=== PATIENT | male | born 1930 | race Caucasian/White ===

== ENCOUNTER 2018-03-15 12:40 | Inpatient (IN) | payer MEDICARE, BC ==
[2018-03-15 13:59] LABS: #Eosinphils 0.2 thou/uL (0.0-0.7); #Lymphocytes 0.6 thou/uL (1.20-3.40); #Monocytes 0.4 thou/uL (0.11-0.59); #Neutrophils 5.1 thou/uL (1.40-6.50); %Basophils 0.4 % (0.0-1.0); %Eosinophils 3.2 % (0.0-10.0); %Lymphocytes 9.2 % (21.0-51.0); %Neutrophils 81.2 % (42.0-75.0); Hemoglobin 13.2 g/dL (14.0-18.0); Mean Corpuscular HGB CONC 33.6 g/dL (32.0-36.0); Mean Corpuscular Hemoglobin 30.7 pg (27.0-31.0); Mean Corpuscular Volume 91.1 fl (80.0-94.0); Mean Platelet Volume 6.5 fL (7.4-10.4); Platelet Count 277 thou/uL (130-400); RBC Distribution Width 11.9 % (11.5-14.5); Red Blood Cell (RBC) Count 4.31 mill/uL (4.70-6.10); White Blood Cell (WBC) Count 6.2 thou/uL (4.8-10.8)
[2018-03-15 14:15] LABS: Bilirubin Negative (Negative); Blood, Urine Negative (Negative); Clarity CLEAR (Clear); Glucose, Urine (Dipstick) 100 mg/dL (Negative); Leukocyte Moderate (Negative); Nitrite Negative (Negative); Protein, Urine (Dipstick) 30 mg/dL (Neg-Trace); Specific Gravity, Urine 1.015 (1.002-1.036); pH, Urine 6.5 (5.0-9.0)
[2018-03-15 14:19] LABS: Bacteria/HPF None Seen HPF (None Seen); Hyaline Casts/LPF 0-3 HYALINE CAST LPF (0-3 Hyaline); RBC/HPF 0-3 HPF (0-3); Squamous Epithelial 0-3 HPF (0-3)
[2018-03-15 14:20] LABS: ALT (SGPT) 9 U/L (8-55); AST (SGOT) 11 U/L (5-34); Albumin 3.9 g/dL (3.4-4.8); Alkaline Phosphatase 134 U/L (40-150); Anion Gap 14 mmol/L (10-20); BUN (Urea Nitrogen) 16 mg/dL (8.4-25.7); Bilirubin, Total 0.6 mg/dL (0.2-1.2); Calc. Creatinine Clearance 0 mL/min (70-130); Calcium 9.7 mg/dL (7.8-10.44); Carbon Dioxide 25 mmol/L (23-31); Chloride 97 mmol/L (98-107); Estimated GFR-MDRD 90; Globulin 2.9 g/dL (2.4-3.5); Glucose 201 mg/dL (83-110); Potassium 4.1 mmol/L (3.5-5.1); Protein, Total 6.8 g/dL (5.8-8.1); Sodium 132 mmol/L (136-145)
--- NOTE | 2018-03-15 17:13 | ULT ---
BILATERAL LOWER EXTREMITY VENOUS DOPPLER 03/15/18 PROVIDED CLINICAL HISTORY: Bilateral lower extremity pain and edema. FINDINGS: Qureshi scale and color doppler sonography with spectral analysis is performed of bilateral common femor al, femoral, popliteal, posterior tibial, greater saphenous, and profunda femoral veins demonstrating a normal sonographic appearance to each. IMPRESSION: No sonographic evidence for lower extremity deep venous thrombosis. POS: ALICIA
[2018-03-15 18:30] LABS: Lactic Acid 1.1 mmol/L (0.5-2.2)
[2018-03-15] MEDS ORDERED: HYDROcodone/Acetaminophen 5/325 mg Tablet PO PRN (19:47)
[2018-03-15] MEDS ORDERED: Acetaminophen 325 MG TAB PO PRN (19:47)
[2018-03-15] MEDS ORDERED: Ondansetron PF 4 MG/2 ML Vial IVP PRN (19:47)
[2018-03-15] MEDS ORDERED: cefTRIAXone\\ROCEPHIN 500 MG in Sodium Chloride 0.9% 0 ML IVPB SCH (20:00)
[2018-03-15] MEDS ORDERED: Vancomycin HCl 1.25 GM in Sodium Chloride 0.9% 250 ML 250 ML IVPB SCH (21:00)
--- NOTE | 2018-03-15 21:15 | HP ---
PRIMARY CARE PHYSICIAN: Dr. Gutierrez. CHIEF COMPLAINT: Bilateral lower extremity swelling. HISTORY OF PRESENT ILLNESS: This is an 87-year-old male with a known history of diabetes, peripheral vascular disease, hard of hearing, who presented with a progressive 1-2 weeks lower extremity swelli ng with erythema. He states that it started at the bottoms of his feet which are currently very tend er and had some petechiae upon them. He states that it has gotten progressively painful. Denies any shortness of breath, fevers or chills. Denies any prior similar episodes. REVIEW OF SYSTEMS: As per above. General: No significant weight changes, no fevers, no chills as d escribed above. HEENT: No any headache, no vision changes, no lightheadedness or dizziness. Cardio vascular: Denies any chest pain, chest pressure, left side arm numbness or tingling. Respiratory: Denies any overt shortness of breath, recent upper respiratory infections. No new cough, no new issu es with congestion. Gastrointestinal: Denies any nausea, vomiting, abdominal pain, diarrhea or cons tipation. Reports that his appetite has remained stable. Genitourinary: Denies any dysuria, change in his urinary frequency quality or quantity or odor. Musculoskeletal: Denies any myalgias or arth ralgias. Skin: No other rashes, lumps or bumps that the patient has noticed. Remainder of review o f systems is otherwise negative. PAST MEDICAL HISTORY: As per above includes, 1. Type 2 diabetes. 2. Hyperlipidemia. 3. Hypertension. 4. Parkinson's. 5. Status post tonsillectomy. ALLERGIES: No known drug allergies. HOME MEDICATIONS: The patient states that his facility would have a list, but he does not recall off the top of his head, so therefore do not have a list yet. FAMILY HISTORY: The patient denies any family history of frequent infections. Denies any known fami ly history of heart failure or lower extremity swelling. SOCIAL HISTORY: The patient currently resides in a assisted. Denies any alcohol use, tobacco us e or illicit drug use. Patient currently endorses that he wishes to be FULL CODE. The patient does not have any pets with him, although he states that there is a dog that resides next door to him, but he does not go into contact with the dog. PHYSICAL EXAMINATION: GENERAL: The patient is awake, alert, and appropriate, in no acute distress, seated in the hospital bed. HEENT: Normocephalic, atraumatic, slightly dry mucous membranes, equal ocular motions are intact. CARDIOVASCULAR: S1, S2. Pulses 2+ bilateral upper extremities, 2+ to 3+ bilateral pitting pedal darrick ma. RESPIRATORY: Reasonable air movement and no conversational dyspnea. No wheezes, rales or rhonchi. LUNGS: Clear to auscultation bilaterally. ABDOMEN: Positive bowel sounds, soft, nontender to palpation. MUSCULOSKELETAL: Moving all 4 extremities independently, bilateral lower extremities. SKIN: Significant amount of erythema involving the bottoms of his feet and stretching alf up thr ough his roman. No other areas of erythema on his torso head, neck, back, legs, arms. Some areas of petechiae and ecchymoses on the bottoms of his bilateral feet extending from his heel anteriorly abou t 3/4 of his foot. LABORATORY AND IMAGING DATA: WBC 6.2, hemoglobin 13.2, hematocrit 39.3, platelets 277. Sodium 132, potassium 4.1, chloride 97, bicarbonate 25, BUN 16, creatinine 0.81, glucose 201. Lactic acid 2.3, c alcium 9.7, total bilirubin 0.6, AST 11, ALT 9, alkaline phosphatase 134. BNP 222.1, total protein 6 .8, albumin 3.9. UA significant for 30 of protein, 100 of glucose, moderate leukoesterase and 11-12 wbc's On 03/15/2018, bilateral lower extremity Dopplers, impression, "no sonographic evidence for lower ext remity deep venous thrombosis." ASSESSMENT AND PLAN: An 87-year-old male who is presenting with bilateral lower extremity swelling. 1. The patient has a degree of a slight asymmetry to his bilateral lower extremity swelling particul missy the erythematous pattern concerned for the possibility of an infectious etiology. We will start the patient on vancomycin and ceftriaxone. 2. DVT has been ruled out on bilateral lower extremity Dopplers. Could consider some diuresis as we ll to help with the bilateral lower extremity swelling. The patient does not overtly carry a diagnos is of heart failure at this point in time. 3. Type 2 diabetes. Given the patient's type 2 diabetes, he is at theoretical increased risk for ps eudomonal agents; however, he does not have the historical exposure. I will continue to monitor his cellulitis closely. I outlined the area of erythema. 4. Hypertension, stable. 5. Parkinson's, stable. 6. Diet: Diabetic. 7. Activity: As tolerated. 8. DVT prophylaxis with heparin. Thank you for asking me to care for the patient. Questions or concerns, please contact me at [facility].
[2018-03-15] MEDS: CEFTRIAXONE ROCEPHIN IVPB SCH (21:27)
[2018-03-15] MEDS: STERILE WATER IVPB SCH (21:27)
[2018-03-15 21:35] VITALS: BMI 28.3
[2018-03-15] MEDS: Famotidine 20 MG TAB PO SCH (22:01)
[2018-03-15] MEDS: Heparin 5,000 UNITS/ML VIAL SC SCH (22:02)
[2018-03-16 05:26] LABS: #Eosinphils 0.2 thou/uL (0.0-0.7); #Lymphocytes 0.8 thou/uL (1.20-3.40); #Monocytes 0.4 thou/uL (0.11-0.59); #Neutrophils 4.9 thou/uL (1.40-6.50); %Basophils 0.3 % (0.0-1.0); %Eosinophils 3.3 % (0.0-10.0); %Lymphocytes 11.9 % (21.0-51.0); %Monocytes 6.7 % (0.0-10.0); %Neutrophils 77.7 % (42.0-75.0); Hemoglobin 12.3 g/dL (14.0-18.0); Mean Corpuscular HGB CONC 33.9 g/dL (32.0-36.0); Mean Corpuscular Hemoglobin 30.5 pg (27.0-31.0); Mean Platelet Volume 6.7 fL (7.4-10.4); Platelet Count 272 thou/uL (130-400); RBC Distribution Width 11.6 % (11.5-14.5); Red Blood Cell (RBC) Count 4.03 mill/uL (4.70-6.10); White Blood Cell (WBC) Count 6.3 thou/uL (4.8-10.8)
[2018-03-16 05:45] LABS: Anion Gap 9 mmol/L (10-20); BUN (Urea Nitrogen) 13 mg/dL (8.4-25.7); Calc. Creatinine Clearance 76 mL/min (70-130); Calcium 8.9 mg/dL (7.8-10.44); Carbon Dioxide 30 mmol/L (23-31); Chloride 100 mmol/L (98-107); Estimated GFR-MDRD Greater than 90; Glucose 163 mg/dL (83-110); Potassium 3.7 mmol/L (3.5-5.1); Sodium 135 mmol/L (136-145)
[2018-03-16] MEDS: Heparin 5,000 UNITS/ML VIAL SC SCH ×3 (07:58→22:03)
[2018-03-16] MEDS: Famotidine 20 MG TAB PO SCH ×2 (07:58→22:03)
--- NOTE | 2018-03-16 10:19 | PDOC.PN ---
- Subjective Encounter Start Date: 03/16/18 Encounter Start Time: 10:18 CC: leg swelling sub: Pt c/o some lower extremity pain, erythema improving - Objective Resuscitation Status: Resuscitation Status FULL:Full Resuscitation Vital Signs & Weight: Vital Signs (12 hours) Temp Pulse Resp BP Pulse Ox 03/16/18 08:00 98.2 F 71 18 96 03/16/18 07:00 98.1 F 82 18 159/85 H 92 L 03/16/18 03:48 98.2 F 71 18 159/81 H 93 L 03/15/18 23:34 98.2 F 72 18 155/79 H 94 L Weight Weight 170 lb I&O: 03/15/18 03/16/18 03/17/18 06:59 06:59 06:59 Intake Total 510 240 Output Total 525 Balance -15 240 Result Diagrams: 03/16/18 04:45 03/16/18 04:45 Additional Labs: Accuchecks 03/16/18 03/15/18 04:38 21:55 POC Glucose 166 H 165 H Phys Exam - Physical Examination Constitutional: NAD HEENT: moist MMs Neck: no JVD Respiratory: no wheezing, no rales, no rhonchi Cardiovascular: RRR, no significant murmur, no rub Gastrointestinal: soft, non-tender, positive bowel sounds positive leg swelling and erythema Neurological: non-focal Dx/Plan - Plan * . Pt is 87 yrs old male now admitted to hospital due to leg swelling and erythema 1. Leg cellulituis 2. H/O HTN 3. H/O Parkinsons disease 4. DM type 2 5. HPL Plan: 1. Will continue iv antibiotics. Plan to start pt on lasix po daily 2. Monitor bp closely. Continue bp meds 3. Will continue home meds 4. Monitor blood sugars closely, Continue insulin sliding scale. 4. SCD & PPI for dvt and GI prophylaxis. case d/w pt & RN
[2018-03-16] MEDS: Carbidopa/Levodopa 25-250 mg Tablet PO SCH ×3 (12:24→22:04)
[2018-03-16] MEDS ORDERED: Furosemide 20 MG TAB PO SCH (12:30)
[2018-03-16] MEDS: metFORMIN 500 MG TAB PO SCH (16:59)
[2018-03-16] MEDS: STERILE WATER IVPB SCH (22:03)
[2018-03-16] MEDS: CEFTRIAXONE ROCEPHIN IVPB SCH (22:03)
[2018-03-16] MEDS: Tamsulosin HCl 0.4 MG CAP PO SCH (22:03)
[2018-03-16] MEDS: Atorvastatin Calcium 10 MG TAB PO SCH (22:04)
[2018-03-16] MEDS: Vancomycin HCl 1.25 GM in Sodium Chloride 0.9% 250 ML 250 ML IVPB SCH (22:04)
[2018-03-17 04:32] LABS: #Eosinphils 0.2 thou/uL (0.0-0.7); #Lymphocytes 0.9 thou/uL (1.20-3.40); #Monocytes 0.5 thou/uL (0.11-0.59); #Neutrophils 5.4 thou/uL (1.40-6.50); %Basophils 0.1 % (0.0-1.0); %Eosinophils 3.3 % (0.0-10.0); %Lymphocytes 12.3 % (21.0-51.0); %Monocytes 7.7 % (0.0-10.0); %Neutrophils 76.6 % (42.0-75.0); Hemoglobin 12.2 g/dL (14.0-18.0); Mean Corpuscular Hemoglobin 30.4 pg (27.0-31.0); Mean Corpuscular Volume 89.3 fl (80.0-94.0); Mean Platelet Volume 6.6 fL (7.4-10.4); Platelet Count 266 thou/uL (130-400); RBC Distribution Width 11.7 % (11.5-14.5); White Blood Cell (WBC) Count 7.1 thou/uL (4.8-10.8)
[2018-03-17 05:10] LABS: Anion Gap 10 mmol/L (10-20); BUN (Urea Nitrogen) 17 mg/dL (8.4-25.7); Calc. Creatinine Clearance 65 mL/min (70-130); Calcium 8.7 mg/dL (7.8-10.44); Carbon Dioxide 28 mmol/L (23-31); Chloride 101 mmol/L (98-107); Estimated GFR-MDRD 82; Glucose 195 mg/dL (83-110); Potassium 3.5 mmol/L (3.5-5.1); Sodium 135 mmol/L (136-145)
[2018-03-17] MEDS: Losartan 25 MG TAB PO SCH (08:55)
[2018-03-17] MEDS: Amlodipine 5 MG TAB PO SCH (08:56)
[2018-03-17] MEDS: Famotidine 20 MG TAB PO SCH ×2 (08:56→21:34)
[2018-03-17] MEDS: Furosemide 20 MG TAB PO SCH (08:56)
[2018-03-17] MEDS: Hydrochlorothiazide 25 MG TAB PO SCH (08:56)
[2018-03-17] MEDS: metFORMIN 500 MG TAB PO SCH ×2 (08:57→17:14)
[2018-03-17] MEDS: Heparin 5,000 UNITS/ML VIAL SC SCH ×3 (08:57→21:35)
[2018-03-17] MEDS: Carbidopa/Levodopa 25-250 mg Tablet PO SCH ×4 (08:58→21:34)
--- NOTE | 2018-03-17 19:04 | PDOC.PN ---
- Subjective Encounter Start Date: 03/17/18 Encounter Start Time: 18:50 Subjective: f/u for bilateral LE cellulitis on Rocephin and Vancomycin Day #2 abx -: Feels better with less skin sensitivity. No fever or chills. Apparently fel -: in his room attempting to get to the bathroom, scraping knees. - Objective Resuscitation Status: Resuscitation Status FULL:Full Resuscitation MAR Reviewed: Yes Vital Signs & Weight: Vital Signs (12 hours) Temp Pulse Pulse Resp BP BP BP 03/17/18 10:19 73 156/84 H 03/17/18 08:56 82 153/67 H 03/17/18 08:00 98.2 F 82 18 153/67 H Pulse Ox Pulse Ox 03/17/18 10:19 96 03/17/18 08:56 03/17/18 08:00 95 Weight Admit Weight 170 lb Weight 170 lb I&O: 03/16/18 03/17/18 03/18/18 06:59 06:59 06:59 Intake Total 510 1230 Output Total 525 800 300 Balance -15 430 -300 Result Diagrams: 03/17/18 03:49 03/17/18 03:49 Additional Labs: Accuchecks 03/17/18 03/17/18 03/17/18 16:48 11:17 06:09 POC Glucose 164 H 286 H 163 H 03/16/18 22:04 POC Glucose 175 H Microbiology 03/15/18 14:27 Venous blood - Right Hand Blood Culture - Preliminary NO GROWTH AT 48 HOURS 03/15/18 14:26 Venous blood - Right Arm Blood Culture - Preliminary NO GROWTH AT 48 HOURS 03/15/18 13:30 Urine clean catch Urine Culture - Preliminary Enterococcus species Laboratory Tests 03/15/18 03/15/18 03/15/18 13:46 13:46 17:41 Neutrophils % 81.2 H Lactic Acid 2.3 H 1.1 03/16/18 03/17/18 04:45 03:49 Neutrophils % 77.7 H 76.6 H Lactic Acid Radiology Reviewed by me: Yes (Bilat Venous Dopp LE's - neg for DVT) Phys Exam - Physical Examination Constitutional: NAD HEENT: PERRLA, moist MMs, sclera anicteric, oral pharynx no lesions Neck: no nodes, no JVD, supple Respiratory: no wheezing, no rales, no rhonchi, clear to auscultation bilateral Cardiovascular: RRR, no significant murmur, no rub, gallop Gastrointestinal: soft, non-tender, no distention, positive bowel sounds bilat LE edema localizing to lower legs and dorsum of feet Musculoskeletal: pulses present Neurological: non-focal, normal sensation, moves all 4 limbs Psychiatric: normal affect, A&O x 3 Skin: normal turgor, cap refill <2 seconds Dx/Plan (1) Cellulitis of both lower extremities Code(s): L03.115 - CELLULITIS OF RIGHT LOWER LIMB; L03.116 - CELLULITIS OF LEFT LOWER LIMB Status: Acute Comment: Continue Rocephin and Vancomycin, overall improved (2) UTI (urinary tract infection) due to Enterococcus Code(s): N39.0 - URINARY TRACT INFECTION, SITE NOT SPECIFIED; B95.2 - ENTEROCOCCUS THE CAUSE OF DISEASES CLASSIFIED ELSEWHERE Status: Acute Comment: Continue Vancomycin until final sensitivities available, encourage increased free-H2O (3) DM II (diabetes mellitus, type II), controlled Code(s): E11.9 - TYPE 2 DIABETES MELLITUS WITHOUT COMPLICATIONS Status: Chronic Comment: Continue Metformin 1000mg BID, ISS, ADA (4) HTN (hypertension) Code(s): I10 - ESSENTIAL (PRIMARY) HYPERTENSION Status: Chronic Qualifiers: Hypertension type: essential hypertension Qualified Code(s): I10 - Essential (primary) hypertension Comment: Continue current BP regimen, labile trend, may need additional titration on an outpt basis (5) Parkinsons disease Code(s): G20 - PARKINSON'S DISEASE Status: Chronic Comment: Continue Sinemet 25/250mg QID, fall precautions - Plan continue antibiotics, PT/OT, social work job titles Stable overall -: Continue Rocephin and Vancomycin -: Await final Ucx sensitivities -: PT for functional assessment -: AM lab: BMP * Likely back to [facility] in 48h
[2018-03-17 21:18] LABS: Vancomycin, Trough 5.2 ug/mL
[2018-03-17] MEDS: Tamsulosin HCl 0.4 MG CAP PO SCH (21:34)
[2018-03-17] MEDS: Atorvastatin Calcium 10 MG TAB PO SCH (21:34)
[2018-03-17] MEDS: STERILE WATER IVPB SCH (21:36)
[2018-03-17] MEDS: CEFTRIAXONE ROCEPHIN IVPB SCH (21:36)
[2018-03-17] MEDS ORDERED: Vancomycin HCl 750 MG in Sodium Chloride 0.9% 250 ML 250 ML IVPB SCH (21:45)
[2018-03-17] MEDS: Vancomycin HCl 1.25 GM in Sodium Chloride 0.9% 250 ML 250 ML IVPB SCH (22:15)
[2018-03-18 05:55] LABS: Anion Gap 13 mmol/L (10-20); BUN (Urea Nitrogen) 22 mg/dL (8.4-25.7); Calc. Creatinine Clearance 72 mL/min (70-130); Calcium 8.9 mg/dL (7.8-10.44); Carbon Dioxide 25 mmol/L (23-31); Chloride 101 mmol/L (98-107); Estimated GFR-MDRD Greater than 90; Glucose 129 mg/dL (83-110); Potassium 3.5 mmol/L (3.5-5.1); Sodium 135 mmol/L (136-145)
[2018-03-18] MEDS: Famotidine 20 MG TAB PO SCH ×2 (08:35→20:04)
[2018-03-18] MEDS: Losartan 25 MG TAB PO SCH (08:35)
[2018-03-18] MEDS: Amlodipine 5 MG TAB PO SCH (08:36)
[2018-03-18] MEDS: Hydrochlorothiazide 25 MG TAB PO SCH (08:36)
[2018-03-18] MEDS: metFORMIN 500 MG TAB PO SCH ×2 (08:36→16:57)
[2018-03-18] MEDS: Furosemide 20 MG TAB PO SCH (08:36)
[2018-03-18] MEDS: Heparin 5,000 UNITS/ML VIAL SC SCH ×3 (08:37→20:04)
[2018-03-18] MEDS: Carbidopa/Levodopa 25-250 mg Tablet PO SCH ×4 (08:37→20:03)
[2018-03-18] MEDS: Vancomycin HCl 750 MG in Sodium Chloride 0.9% 250 ML 250 ML IVPB SCH ×2 (08:38→21:20)
--- NOTE | 2018-03-18 11:58 | PDOC.PN ---
- Subjective Encounter Start Date: 03/18/18 Encounter Start Time: 11:40 Subjective: f/u for bilateral LE cellulitis on Vancomycin and Rocephin. Also tx for UTI -: with enterococcus. Feels better overall. Less leg pain and skin less -: sensitive. No fever or chills. - Objective Resuscitation Status: Resuscitation Status FULL:Full Resuscitation MAR Reviewed: Yes Vital Signs & Weight: Vital Signs (12 hours) Temp Pulse Resp BP BP Pulse Ox 03/18/18 11:13 98.1 F 67 16 147/76 H 92 L 03/18/18 08:36 74 148/73 H 03/18/18 08:00 97.5 F L 76 18 Weight Admit Weight 170 lb Weight 170 lb I&O: 03/17/18 03/18/18 03/19/18 06:59 06:59 06:59 Intake Total 1230 630 Output Total 800 775 Balance 430 -145 Result Diagrams: 03/17/18 03:49 03/18/18 04:28 Additional Labs: Accuchecks 03/18/18 03/18/18 03/17/18 11:18 05:29 19:56 POC Glucose 169 H 145 H 214 H 03/17/18 16:48 POC Glucose 164 H Microbiology 03/15/18 13:30 Urine clean catch Urine Culture - Final Enterococcus species 03/15/18 14:27 Venous blood - Right Hand Blood Culture - Preliminary NO GROWTH AT 48 HOURS 03/15/18 14:26 Venous blood - Right Arm Blood Culture - Preliminary NO GROWTH AT 48 HOURS 03/15/18 13:30 Urine clean catch Urine Culture - Preliminary Enterococcus species Laboratory Tests 03/15/18 03/15/18 03/15/18 13:46 13:46 17:41 Neutrophils % 81.2 H Lactic Acid 2.3 H 1.1 03/16/18 03/17/18 04:45 03:49 Neutrophils % 77.7 H 76.6 H Lactic Acid Phys Exam - Physical Examination Constitutional: NAD HEENT: PERRLA, moist MMs, sclera anicteric, oral pharynx no lesions Neck: no nodes, no JVD, supple Respiratory: no wheezing, no rales, no rhonchi, clear to auscultation bilateral S1, S2 Cardiovascular: RRR, no significant murmur, no rub, gallop Gastrointestinal: soft, non-tender, no distention, positive bowel sounds mild LE edema of shins Musculoskeletal: pulses present Neurological: non-focal, normal sensation, moves all 4 limbs Psychiatric: A&O x 3 Deviation from normal: decreased erythema to bilat LE's, decreased edema Skin: normal turgor, cap refill <2 seconds Dx/Plan (1) Cellulitis of both lower extremities Code(s): L03.115 - CELLULITIS OF RIGHT LOWER LIMB; L03.116 - CELLULITIS OF LEFT LOWER LIMB Status: Acute Comment: Continue Rocephin and Vancomycin, overall improved, continue IV abx another 24h then convert to Augmentin (2) UTI (urinary tract infection) due to Enterococcus Code(s): N39.0 - URINARY TRACT INFECTION, SITE NOT SPECIFIED; B95.2 - ENTEROCOCCUS THE CAUSE OF DISEASES CLASSIFIED ELSEWHERE Status: Acute Comment: Continue Vancomycin until final sensitivities available, encourage increased free-H2O, transition to Augmentin in 24h (3) DM II (diabetes mellitus, type II), controlled Code(s): E11.9 - TYPE 2 DIABETES MELLITUS WITHOUT COMPLICATIONS Status: Chronic Comment: Continue Metformin 1000mg BID, ISS, ADA (4) HTN (hypertension) Code(s): I10 - ESSENTIAL (PRIMARY) HYPERTENSION Status: Chronic Qualifiers: Hypertension type: essential hypertension Qualified Code(s): I10 - Essential (primary) hypertension Comment: Continue current BP regimen, labile trend, may need additional titration on an outpt basis (5) Parkinsons disease Code(s): G20 - PARKINSON'S DISEASE Status: Chronic Comment: Continue Sinemet 25/250mg QID, fall precautions - Plan continue antibiotics, PT/OT, social studies department chair, out of bed/ambulate, DVT proph w/ SCDs Stable currently -: Continue Vancomycin and Rocephin another 24h -: Start Augmentin 03/19/18 -: CM to assist with HH options for d/c -: OOB/ambulate with assist * Restart KCL 20meq po daily * Likely home in am
[2018-03-18 19:18] VITALS: BP 144/71
[2018-03-18] MEDS: STERILE WATER IVPB SCH (20:01)
[2018-03-18] MEDS: CEFTRIAXONE ROCEPHIN IVPB SCH (20:01)
[2018-03-18] MEDS: Tamsulosin HCl 0.4 MG CAP PO SCH (20:03)
[2018-03-18] MEDS: Atorvastatin Calcium 10 MG TAB PO SCH (20:03)
[2018-03-19 06:16] LABS: Anion Gap 12 mmol/L (10-20); BUN (Urea Nitrogen) 17 mg/dL (8.4-25.7); Calc. Creatinine Clearance 82 mL/min (70-130); Calcium 8.7 mg/dL (7.8-10.44); Carbon Dioxide 27 mmol/L (23-31); Chloride 99 mmol/L (98-107); Estimated GFR-MDRD Greater than 90; Glucose 146 mg/dL (83-110); Potassium 3.5 mmol/L (3.5-5.1); Sodium 134 mmol/L (136-145)
[2018-03-19] MEDS: Furosemide 20 MG TAB PO SCH (07:48)
[2018-03-19] MEDS: metFORMIN 500 MG TAB PO SCH (07:48)
[2018-03-19] MEDS: Heparin 5,000 UNITS/ML VIAL SC SCH ×2 (07:49→14:33)
[2018-03-19] MEDS: Hydrochlorothiazide 25 MG TAB PO SCH (07:49)
[2018-03-19] MEDS: Losartan 25 MG TAB PO SCH (07:49)
[2018-03-19] MEDS: Amlodipine 5 MG TAB PO SCH (07:49)
[2018-03-19] MEDS: Famotidine 20 MG TAB PO SCH (07:49)
[2018-03-19 08:41] LABS: Vancomycin, Trough 11.1 ug/mL
[2018-03-19] MEDS: Carbidopa/Levodopa 25-250 mg Tablet PO SCH ×2 (08:44→12:12)
[2018-03-19] MEDS ORDERED: Potassium Chloride 10 MEQ TAB PO SCH (09:00)
[2018-03-19 09:17] VITALS: TEMP 98.1
[2018-03-19] MEDS: Vancomycin HCl 750 MG in Sodium Chloride 0.9% 250 ML 250 ML IVPB SCH (09:49)
[2018-03-19] MEDS ORDERED: Vancomycin HCl 1 GM in Premix Bag 1 BAG IVPB SCH (10:00)
--- NOTE | 2018-03-19 14:45 | DIS ---
DATE OF ADMISSION: 03/15/2018 DATE OF DISCHARGE: 03/19/2018 DISCHARGE DIAGNOSES: 1. Bilateral lower extremity cellulitis, improved. 2. Urinary tract infection with Enterococcus species. 3. Diabetes mellitus type 2, controlled. 4. Hypertension, stable. 5. Parkinson's disease. CONSULTATIONS: None. PERTINENT LABORATORY DATA AND X-RAY FINDINGS: Basic metabolic profile within normal limits. BNP 222 . Lactic acid level ranged between 1.1-2.3. CBC showed a hemoglobin ranging from 12.2-13.2. Urine culture dated 03/15/2018 showed 50,000-75,000 colonies of Enterococcus species, pansensitive except f or tetracycline. Blood cultures x2 from 03/15/2018 showed no growth at 48 hours. Bilateral lower ex tremity venous Doppler study dated 03/15/2018 showed no evidence for DVT. HOSPITAL COURSE: Patient was admitted to the medical floor after initially presenting with bilateral lower extremity edema and erythema consistent with cellulitis. The patient was placed on broad-spec trum antibiotic therapy with Rocephin and vancomycin and managed medically. The patient was slow to clinically improve; however, did show overall decreasing erythema and edema after initiation of Lasix 20 mg daily. The patient remained afebrile throughout the hospital course with no specific leukocyt osis documented. The patient's overall pain of the lower extremities improved with antibiotic therap y and was able to ambulate with assistance without difficulty. The patient was also noted with urina ry tract infection with Enterococcus species sensitive to penicillins and quinolones. Overall, patie nt did remain clinically stable with stable vital signs throughout the hospital course. I have exami puja the patient at the time of discharge and discussed lab findings as well as discharge planning and followup instructions. The patient verbalized understanding and agreement with discharge and ready for discharge on 03/19/2018. DISCHARGE MEDICATIONS: 1. Augmentin 875 mg 1 tab p.o. b.i.d. x7 days. 2. Amlodipine 5 mg one tablet p.o. daily. 3. Enteric-coated aspirin 81 mg 1 tab p.o. daily. 4. Lipitor 10 mg p.o. at bedtime. 5. Carbidopa/levodopa 25/250 mg 1 tab p.o. q.i.d. 6. Hydrochlorothiazide 25 mg 1 tab p.o. daily. 7. Cozaar 100 mg 1 tab p.o. daily. 8. Metformin 1000 mg p.o. b.i.d. 9. K-Dur 10 mEq p.o. daily. 10. Flomax 0.4 mg p.o. at bedtime. FOLLOWUP: Patient will follow up with Dr. Roland Gutierrez within 7 days of discharge. CONDITION ON DISCHARGE: Stable. ACTIVITY: Ad carolina. DIET: Heart healthy and ADA. CODE STATUS: FULL. DISPOSITION: Discharged home to [facility] on 03/19/2018. Total time preparing and coordinating discharge is 34 minutes.
== END 2018-03-19 16:11 | DRG 603 ==
LOC: ERS 12:40 → T4-B 17:30
PROVIDERS: ADMIT Internal Medicine; ATTEND Internal Medicine
DX: L03.116 Cellulitis of left lower limb (principal); N39.0 Urinary tract infection, site not specified; G20 Parkinson's disease; E11.9 Type 2 diabetes mellitus without complications; L03.115 Cellulitis of right lower limb; I10 Essential (primary) hypertension; I73.9 Peripheral vascular disease, unspecified; H91.90 Unspecified hearing loss, unspecified ear; E78.5 Hyperlipidemia, unspecified; Z79.899 Other long term (current) drug therapy; B95.2 Enterococcus as the cause of diseases classified elsewhere; Z79.82 Long term (current) use of aspirin; Z79.84 Long term (current) use of oral hypoglycemic drugs
CPT/HCPCS: 36415; 36416; 80048; 80053; 80202; 81003; 81015; 83605; 83880; 85025; 87040; 87077; 87086; 87186; 93970; 96365; 96375; A4216; G8978-GP-CK; G8979-GP-CI; J0696; J1644; J3370; J7050

== ENCOUNTER 2018-10-03 15:31 | Inpatient (IN) | payer MEDICARE, BC ==
[2018-10-03 16:00] LABS: #Eosinphils 0.2 thou/uL (0.0-0.7); #Lymphocytes 0.8 thou/uL (1.20-3.40); #Monocytes 0.5 thou/uL (0.11-0.59); #Neutrophils 5.7 thou/uL (1.40-6.50); %Basophils 0.7 % (0.0-1.0); %Eosinophils 2.3 % (0.0-10.0); %Lymphocytes 10.8 % (21.0-51.0); %Monocytes 6.7 % (0.0-10.0); %Neutrophils 79.6 % (42.0-75.0); Hemoglobin 12.4 g/dL (14.0-18.0); Mean Corpuscular Hemoglobin 28.9 pg (27.0-31.0); Mean Corpuscular Volume 90.5 fL (78.0-98.0); Mean Platelet Volume 6.9 fL (7.4-10.4); Platelet Count 296 thou/uL (130-400); RBC Distribution Width 12.5 % (11.5-14.5); Red Blood Cell (RBC) Count 4.28 mill/uL (4.70-6.10); White Blood Cell (WBC) Count 7.1 thou/uL (4.8-10.8)
[2018-10-03 16:20] LABS: ALT (SGPT) 11 U/L (8-55); AST (SGOT) 17 U/L (5-34); Alkaline Phosphatase 100 U/L (40-150); Anion Gap 14 mmol/L (10-20); BUN (Urea Nitrogen) 26 mg/dL (8.4-25.7); Bilirubin, Total 0.5 mg/dL (0.2-1.2); Calc. Creatinine Clearance 0 mL/min (70-130); Calcium 9.6 mg/dL (7.8-10.44); Carbon Dioxide 25 mmol/L (23-31); Chloride 100 mmol/L (98-107); Estimated GFR-MDRD 83; Globulin 2.9 g/dL (2.4-3.5); Glucose 188 mg/dL (83-110); Potassium 4.1 mmol/L (3.5-5.1); Protein, Total 6.9 g/dL (5.8-8.1); Sodium 135 mmol/L (136-145)
[2018-10-03 16:25] LABS: CKMB 4.8 ng/mL (0-6.6)
--- NOTE | 2018-10-03 16:25 | RAD ---
FRONTAL VIEW CHEST: Date: 10/03/18 INDICATION: Dyspnea. FINDINGS: There is interstitial prominence of each lung. Cardiac silhouette is enlarged. There is mild prominen ce of the pulmonary vasculature. Vascular calcifications are seen. Added density at the left lateral lung base obscuring left costophrenic sulcus may be related to small volume pleural fluid. Osseous de generative change present. IMPRESSION: Findings most consistent with decompensated CHF. Recommend clinical correlation as well as imaging fo llow-up. POS: Pamela
[2018-10-03] MEDS ORDERED: Furosemide 40 MG/4 ML VIAL ONE (17:02)
[2018-10-03] MEDS ORDERED: Acetaminophen 325 MG TAB PO PRN ×2 (17:04→19:29)
[2018-10-03] MEDS ORDERED: Senokot S 8.6-50 MG TAB PO PRN (17:04)
[2018-10-03] MEDS ORDERED: Ondansetron PF 4 MG/2 ML Vial IVP PRN ×2 (17:04→19:29)
[2018-10-03] MEDS ORDERED: Dextrose 5% in Water 1,000 ML IV PRN (17:05)
[2018-10-03] MEDS ORDERED: Dextrose 50% Abboject 50 ML SYRINGE SLOW IVP PRN (17:05)
[2018-10-03] MEDS ORDERED: Albuterol Sulfate 2.5 mg/3 ml Neb ONE (18:03)
[2018-10-03] MEDS ORDERED: Ondansetron ODT 4 MG TAB SL PRN (19:29)
[2018-10-03 20:02] LABS: Troponin I 0.097 ng/mL (< 0.028)
[2018-10-03] MEDS: Atorvastatin Calcium 10 MG TAB PO SCH (20:17)
[2018-10-03] MEDS: Tamsulosin HCl 0.4 MG CAP PO SCH (20:17)
[2018-10-03] MEDS: Heparin 5,000 UNITS/ML VIAL SC SCH (20:17)
[2018-10-03] MEDS: Carbidopa/Levodopa 25-250 mg Tablet PO SCH (20:17)
[2018-10-03] MEDS: Furosemide 40 MG/4 ML VIAL SLOW IVP SCH (20:26)
[2018-10-03 21:44] LABS: Bilirubin Negative (Negative); Blood, Urine Small (Negative); Clarity CLEAR (Clear); Glucose, Urine (Dipstick) Negative (Negative); Leukocyte Large (Negative); Nitrite Negative (Negative); Protein, Urine (Dipstick) Negative (Neg-Trace); Specific Gravity, Urine 1.008 (1.002-1.036); Urobilinogen 0.2 mg/dL (0.2-1.0)
[2018-10-03 21:46] LABS: Bacteria/HPF None Seen HPF (None Seen); Hyaline Casts/LPF 0-3 HYALINE CAST LPF (0-3 Hyaline); Pathc Cast-AUWi Flag 0.29 (0-2.49); Squamous Epithelial 0-3 HPF (0-3); WBC/HPF 21-50 HPF (0-3)
[2018-10-03 22:35] LABS: Troponin I 0.133 ng/mL (< 0.028)
--- NOTE | 2018-10-03 23:43 | HP ---
CHIEF COMPLAINT: Lower extremity and upper extremity swelling for about a week. HISTORY OF PRESENT ILLNESS: Patient is a very pleasant 87-year-old male who resides in an assisted l iving who comes into the hospital with complaints of upper extremity and lower extremity swelling for the past 1 week. The patient stated that the reason he came in today was because his staff at [facility] were concerned about him and so they brought him into the hospital for further evaluation. Patient currently denies any chest pain, shortness of breath. He is wheelchair bound, does not amb ulate at all. Denies any chest heaviness any fevers, chills, any nausea, vomiting or diarrhea. Neha ent stated that he has been feeling significant amount of swelling in his both extremities and his up per extremities. PAST MEDICAL HISTORY: History of diabetes type 2, hyperlipidemia, hypertension, Parkinson's. PAST SURGICAL HISTORY: He has had tonsillectomy. ALLERGIES: He has no known drug allergies. MEDICATIONS: I am going through the last reconciliation because he does not know his medications. Warren linder is on amlodipine 5 mg daily. He is on hydrochlorothiazide 25 mg daily. He is on metformin 1000 mg b.i.d., potassium 10 mEq daily, aspirin 81 mg daily, atorvastatin 10 mg daily, carbidopa/levodopa 25 /250 one tab q.i.d., losartan 100 mg daily, tamsulosin 0.4 mg at bedtime. SOCIAL HISTORY: Patient lives in a fdc. Denies any alcohol or drug use or tobacco history. Currently, I did speak with him about code status and he told me he wanted to be DNR. FAMILY HISTORY: The patient denies any family history of any infections or heart disease. REVIEW OF SYSTEMS: All negative except as ones mentioned above in the HPI. PHYSICAL EXAMINATION: VITAL SIGNS: As of the following: His temperature was 98.7, his blood pressure was 160/70, his hear t rate was in the 90s and 94% on room air, 16 respirations. GENERAL: He is awake, alert, oriented x3, does not appear in any respiratory distress. CARDIOVASCULAR: S1 and S2 present. Appears to be mildly irregular. LUNGS: He has got mild coarse expiratory wheezing and mild rhonchi all over the lungs. ABDOMEN: Soft, obese. Bowel sounds are present x2. EXTREMITIES: He has got significant lower extremity pitting edema in bilateral lower extremities and bilateral upper extremities. He also has some edema around his bilateral lower eyelid area. LABORATORY DATA AND IMAGING DATA: WBCs of 7.1, hemoglobin of 12.4, hematocrit of 38.7, platelets of 296. Chemistry; sodium of 135, potassium of 4.1, BUN of 26, creatinine 0.87. His BNP was mildly cyrus vated at 383. His troponin was 0.090 and his TSH was 3.69. EKG according to my interpretation appea rs to be atrial fibrillation; however, patient does have a very motion artifact, so we will continue to monitor. ASSESSMENT AND PLAN: The patient is a very pleasant 87-year-old male who presents to the hospital wi th upper extremity and lower extremity swelling. 1. Possible heart failure. We will get an echocardiogram to evaluate the patient's cardiac status. We will start the patient on some IV diuretics twice a day. We will also add daily weights on this patient. Patient currently is rate controlled. We will continue to monitor. 2. Possible atrial fibrillation. Again, there was significant artifact on the EKG. He did have two EKGs in the ER; however, it looks like he most likely has atrial fibrillation. We will continue to monitor. Patient is currently rate controlled. May consult Cardiology also in the morning. 3. Hypertension. We will continue his home medications. 4. Diabetes. We will continue patient's home medications. 5. Deep venous thrombosis prophylaxis. We will put the patient on sequential compression devices or heparin.
[2018-10-04 05:08] LABS: #Eosinphils 0.1 thou/uL (0.0-0.7); #Lymphocytes 0.6 thou/uL (1.20-3.40); #Monocytes 0.4 thou/uL (0.11-0.59); #Neutrophils 3.7 thou/uL (1.40-6.50); %Basophils 0.5 % (0.0-1.0); %Eosinophils 1.6 % (0.0-10.0); %Lymphocytes 12.9 % (21.0-51.0); %Monocytes 8.8 % (0.0-10.0); %Neutrophils 76.2 % (42.0-75.0); Mean Corpuscular HGB CONC 32.4 g/dL (32.0-36.0); Mean Corpuscular Hemoglobin 29.3 pg (27.0-31.0); Mean Corpuscular Volume 90.5 fL (78.0-98.0); Platelet Count 253 thou/uL (130-400); RBC Distribution Width 12.4 % (11.5-14.5); Red Blood Cell (RBC) Count 3.75 mill/uL (4.70-6.10); White Blood Cell (WBC) Count 4.9 thou/uL (4.8-10.8)
[2018-10-04 05:22] LABS: Anion Gap 11 mmol/L (10-20); BUN (Urea Nitrogen) 24 mg/dL (8.4-25.7); Calc. Creatinine Clearance 70 mL/min (70-130); Calcium 9.2 mg/dL (7.8-10.44); Carbon Dioxide 28 mmol/L (23-31); Chloride 102 mmol/L (98-107); Estimated GFR-MDRD 79; Glucose 193 mg/dL (83-110); Potassium 3.5 mmol/L (3.5-5.1); Sodium 137 mmol/L (136-145)
[2018-10-04] MEDS ORDERED: Furosemide 40 MG/4 ML VIAL SLOW IVP SCH (09:00)
[2018-10-04] MEDS: Losartan 25 MG TAB PO SCH (09:34)
[2018-10-04] MEDS: Carbidopa/Levodopa 25-250 mg Tablet PO SCH ×4 (09:34→20:04)
[2018-10-04] MEDS: Furosemide 40 MG/4 ML VIAL SLOW IVP SCH ×2 (09:43→20:05)
[2018-10-04] MEDS: Heparin 5,000 UNITS/ML VIAL SC SCH ×3 (09:43→20:04)
[2018-10-04] MEDS: HumaLOG 300 UNITS/3 ML VIAL SC PRN (12:28)
--- NOTE | 2018-10-04 14:02 | PDOC.PN ---
- Subjective Encounter Start Date: 10/04/18 Encounter Start Time: 10:15 Subjective: pt up in bed no complains - Objective Resuscitation Status: Resuscitation Status DNR:Do Not Resuscitate Vital Signs & Weight: Vital Signs (12 hours) Temp Pulse Resp BP Pulse Ox 10/04/18 11:54 98.6 F 85 18 154/73 H 93 L 10/04/18 11:07 80 16 10/04/18 08:10 98.6 F 86 18 139/75 95 10/04/18 03:29 98.4 F 82 16 107/53 L 93 L Weight Weight 188 lb I&O: 10/03/18 10/04/18 10/05/18 06:59 06:59 06:59 Intake Total 150 Output Total 800 Balance -650 Result Diagrams: 10/04/18 04:43 10/04/18 04:43 Additional Labs: Accuchecks 10/04/18 10/04/18 10/03/18 11:27 05:22 20:08 POC Glucose 213 H 187 H 190 H Phys Exam - Physical Examination Neck: no nodes, no JVD, supple, full ROM Respiratory: no wheezing, no rales, no rhonchi, wheezing present, clear to auscultation bilateral Cardiovascular: RRR, no significant murmur, no rub, gallop, irregular Gastrointestinal: soft, non-tender, no distention, positive bowel sounds Musculoskeletal: edema present lower ext Dx/Plan (1) CHF (congestive heart failure) Code(s): I50.9 - HEART FAILURE, UNSPECIFIED Status: Acute (2) Cellulitis of both lower extremities Code(s): L03.115 - CELLULITIS OF RIGHT LOWER LIMB; L03.116 - CELLULITIS OF LEFT LOWER LIMB Status: Acute Comment: Continue Rocephin and Vancomycin, overall improved, continue IV abx another 24h then convert to Augmentin (3) HTN (hypertension) Code(s): I10 - ESSENTIAL (PRIMARY) HYPERTENSION Status: Chronic Qualifiers: Comment: Continue current BP regimen, labile trend, may need additional titration on an outpt basis (4) Lower extremity edema Code(s): R60.0 - LOCALIZED EDEMA Status: Acute - Plan echo ordered will see what his ef is -: will continue lasix for now and monitor his bmp * . Review of Systems - Review of Systems Cardiovascular: negative: chest pain, palpitations, orthopnea, paroxysmal nocturnal dyspnea, edema, light headedness, other Gastrointestinal: negative: Nausea, Vomiting, Abdominal Pain, Diarrhea, Constipation, Melena, Hematochezia, Other Genitourinary: negative: Dysuria, Frequency, Incontinence, Hematuria, Retention , Other Musculoskeletal: negative: Neck Pain, Shoulder Pain, Arm Pain, Back Pain, Hand Pain, Leg Pain, Foot Pain, Other - Medications/Allergies Allergies/Adverse Reactions: Allergies Allergy/AdvReac Type Severity Reaction Status Date / Time No Known Allergies Allergy Verified 10/03/18 21:04 Medications: Current Medications Acetaminophen (Tylenol) 650 mg PO Q4H PRN PRN Reason: Headache/Fever/Mild Pain (1-3) Albuterol/Ipratropium (Duoneb) 3 ml NEB [id number] [facility] Last Admin: 10/04/18 11:07 Dose: 3 ml Aspirin (Aspirin Chewable) 81 mg PO DAILY [facility] Last Admin: 10/04/18 09:34 Dose: 81 mg Atorvastatin Calcium (Lipitor) 10 mg PO HS [facility] Last Admin: 10/03/18 20:17 Dose: 10 mg Carbidopa/Levodopa (Sinemet 25-250) 1 tab PO QID [facility] Last Admin: 10/04/18 12:56 Dose: 1 tab Dextrose/Water (Dextrose 50%) 25 gm SLOW IVP PRN PRN PRN Reason: Hypoglycemia Furosemide (Lasix) 40 mg SLOW IVP BID [facility] Last Admin: 10/04/18 09:43 Dose: 40 mg Glucagon (Glucagon) 1 mg IM PRN PRN PRN Reason: Hypoglycemia Heparin Sodium (Porcine) (Heparin) 5,000 units SC TID [facility] Last Admin: 10/04/18 09:43 Dose: 5,000 units Dextrose/Water (D5w) 1,000 mls @ 0 mls/hr IV .Q0M PRN PRN Reason: Hypoglycemia Insulin Human Lispro (Humalog) 0 units SC .MILD SLIDING SCALE PRN PRN Reason: Mild Correctional Scale Last Admin: 10/04/18 12:28 Dose: 3 unit Losartan Potassium (Cozaar) 100 mg PO DAILY [facility] Last Admin: 10/04/18 09:34 Dose: 100 mg Ondansetron HCl (Zofran) 4 mg IVP Q6H PRN PRN Reason: Nausea/Vomiting Senna/Docusate Sodium (Senokot S) 2 tab PO BID PRN PRN Reason: Constipation Sodium Chloride (Flush - Normal Saline) 10 ml IVF Q12HR [facility] Last Admin: 10/04/18 09:43 Dose: 10 ml Sodium Chloride (Flush - Normal Saline) 10 ml IVF PRN PRN PRN Reason: Saline Flush Tamsulosin HCl (Flomax) 0.4 mg PO HS [facility] Last Admin: 10/03/18 20:17 Dose: 0.4 mg
[2018-10-04] MEDS: Atorvastatin Calcium 10 MG TAB PO SCH (20:04)
[2018-10-04] MEDS: Tamsulosin HCl 0.4 MG CAP PO SCH (20:04)
[2018-10-05] MEDS: Heparin 5,000 UNITS/ML VIAL SC SCH ×3 (09:33→20:32)
[2018-10-05] MEDS: Carbidopa/Levodopa 25-250 mg Tablet PO SCH ×4 (09:33→20:32)
[2018-10-05] MEDS: Losartan 25 MG TAB PO SCH (09:33)
[2018-10-05 09:52] VITALS: BMI 30.7
[2018-10-05] MEDS: Furosemide 40 MG/4 ML VIAL SLOW IVP SCH (10:17)
[2018-10-05 11:31] LABS: Anion Gap 14 mmol/L (10-20); BUN (Urea Nitrogen) 26 mg/dL (8.4-25.7); Calc. Creatinine Clearance 59 mL/min (70-130); Calcium 9.4 mg/dL (7.8-10.44); Carbon Dioxide 28 mmol/L (23-31); Chloride 100 mmol/L (98-107); Estimated GFR-MDRD 68; Glucose 247 mg/dL (83-110); Potassium 3.7 mmol/L (3.5-5.1); Sodium 138 mmol/L (136-145)
[2018-10-05] MEDS: HumaLOG 300 UNITS/3 ML VIAL SC PRN (11:51)
--- NOTE | 2018-10-05 12:29 | PDOC.PN ---
- Subjective Encounter Start Date: 10/05/18 Encounter Start Time: 11:15 Subjective: pt up in bed feels much better - Objective Resuscitation Status: Resuscitation Status DNR:Do Not Resuscitate Vital Signs & Weight: Vital Signs (12 hours) Temp Pulse Resp BP Pulse Ox 10/05/18 11:48 98.5 F 85 17 159/65 H 94 L 10/05/18 09:04 82 16 10/05/18 08:10 98.9 F 89 17 177/83 H 94 L 10/05/18 04:00 98.5 F 82 16 141/74 H 92 L Weight Weight 184 lb 11.2 oz I&O: 10/04/18 10/05/18 10/06/18 06:59 06:59 06:59 Intake Total 1110 Output Total 3025 Balance -1915 Result Diagrams: 10/04/18 04:43 10/05/18 10:32 Additional Labs: Accuchecks 10/05/18 10/05/18 10/04/18 10:47 05:46 20:35 POC Glucose 230 H 138 H 204 H 10/04/18 16:49 POC Glucose 119 H Phys Exam - Physical Examination Respiratory: no wheezing, no rales, no rhonchi, wheezing present, clear to auscultation bilateral Cardiovascular: RRR, no significant murmur, no rub, gallop, irregular Gastrointestinal: soft, non-tender, no distention, positive bowel sounds Musculoskeletal: edema present improved since admission Dx/Plan (1) CHF (congestive heart failure) Code(s): I50.9 - HEART FAILURE, UNSPECIFIED Status: Acute (2) Cellulitis of both lower extremities Code(s): L03.115 - CELLULITIS OF RIGHT LOWER LIMB; L03.116 - CELLULITIS OF LEFT LOWER LIMB Status: Acute Comment: Continue Rocephin and Vancomycin, overall improved, continue IV abx another 24h then convert to Augmentin (3) HTN (hypertension) Code(s): I10 - ESSENTIAL (PRIMARY) HYPERTENSION Status: Chronic Qualifiers: Comment: Continue current BP regimen, labile trend, may need additional titration on an outpt basis (4) Lower extremity edema Code(s): R60.0 - LOCALIZED EDEMA Status: Acute - Plan pt's ef is 50-55% -: will decrease his lasix to daily -: possible discharge in am * . Review of Systems - Review of Systems Respiratory: negative: Cough, Dry, Shortness of Breath, Hemoptysis, SOB with Excertion, Pleuritic Pain, Sputum, Wheezing Cardiovascular: negative: chest pain, palpitations, orthopnea, paroxysmal nocturnal dyspnea, edema, light headedness, other Gastrointestinal: negative: Nausea, Vomiting, Abdominal Pain, Diarrhea, Constipation, Melena, Hematochezia, Other Genitourinary: negative: Dysuria, Frequency, Incontinence, Hematuria, Retention , Other - Medications/Allergies Allergies/Adverse Reactions: Allergies Allergy/AdvReac Type Severity Reaction Status Date / Time No Known Allergies Allergy Verified 10/03/18 21:04 Medications: Current Medications Acetaminophen (Tylenol) 650 mg PO Q4H PRN PRN Reason: Headache/Fever/Mild Pain (1-3) Albuterol/Ipratropium (Duoneb) 3 ml NEB [id number] [facility] Last Admin: 10/05/18 09:04 Dose: 3 ml Aspirin (Aspirin Chewable) 81 mg PO DAILY [facility] Last Admin: 10/05/18 09:33 Dose: 81 mg Atorvastatin Calcium (Lipitor) 10 mg PO HS [facility] Last Admin: 10/04/18 20:04 Dose: 10 mg Carbidopa/Levodopa (Sinemet 25-250) 1 tab PO QID [facility] Last Admin: 10/05/18 12:00 Dose: 1 tab Dextrose/Water (Dextrose 50%) 25 gm SLOW IVP PRN PRN PRN Reason: Hypoglycemia Furosemide (Lasix) 40 mg SLOW IVP DAILY [facility] Glucagon (Glucagon) 1 mg IM PRN PRN PRN Reason: Hypoglycemia Heparin Sodium (Porcine) (Heparin) 5,000 units SC TID [facility] Last Admin: 10/05/18 09:33 Dose: 5,000 units Dextrose/Water (D5w) 1,000 mls @ 0 mls/hr IV .Q0M PRN PRN Reason: Hypoglycemia Insulin Glargine 5 units/ (Miscellaneous Medication) 0.05 mls @ 0 mls/hr SC HS [facility] Insulin Glargine 5 units/ (Miscellaneous Medication) 0.05 mls @ 0 mls/hr SC QAM [facility] Insulin Human Lispro (Humalog) 0 units SC .MILD SLIDING SCALE PRN PRN Reason: Mild Correctional Scale Last Admin: 10/05/18 11:51 Dose: 3 unit Losartan Potassium (Cozaar) 100 mg PO DAILY [facility] Last Admin: 10/05/18 09:33 Dose: 100 mg Ondansetron HCl (Zofran) 4 mg IVP Q6H PRN PRN Reason: Nausea/Vomiting Senna/Docusate Sodium (Senokot S) 2 tab PO BID PRN PRN Reason: Constipation Sodium Chloride (Flush - Normal Saline) 10 ml IVF Q12HR [facility] Last Admin: 10/05/18 09:34 Dose: 10 ml Sodium Chloride (Flush - Normal Saline) 10 ml IVF PRN PRN PRN Reason: Saline Flush Tamsulosin HCl (Flomax) 0.4 mg PO HS [facility] Last Admin: 10/04/18 20:04 Dose: 0.4 mg
[2018-10-05] MEDS ORDERED: hydrALAZINE 20 MG/ML VIAL SLOW IVP PRN (17:53)
[2018-10-05] MEDS ORDERED: Metoprolol Tartrate 50 MG TAB PO SCH (18:00)
[2018-10-05] MEDS: Atorvastatin Calcium 10 MG TAB PO SCH (20:31)
[2018-10-05] MEDS: Tamsulosin HCl 0.4 MG CAP PO SCH (20:32)
[2018-10-05] MEDS ORDERED: Insulin Glargine 5 UNITS in Pre-Filled Syringe 1 EACH SC SCH (21:00)
[2018-10-06] MEDS: Heparin 5,000 UNITS/ML VIAL SC SCH ×2 (08:52→16:20)
[2018-10-06] MEDS: Carbidopa/Levodopa 25-250 mg Tablet PO SCH ×2 (08:52→12:20)
[2018-10-06] MEDS: Losartan 25 MG TAB PO SCH (08:53)
[2018-10-06] MEDS ORDERED: Insulin Glargine 5 UNITS in Pre-Filled Syringe 1 EACH SC SCH (09:00)
[2018-10-06] MEDS ORDERED: Furosemide 40 MG/4 ML VIAL SLOW IVP SCH (09:00)
[2018-10-06] MEDS ORDERED: Metoprolol Tartrate 50 MG TAB PO SCH (09:00)
[2018-10-06 10:02] LABS: Hemoglobin A1c 7.2 % (4.0-6.0)
[2018-10-06 10:11] LABS: Anion Gap 13 mmol/L (10-20); BUN (Urea Nitrogen) 31 mg/dL (8.4-25.7); Calc. Creatinine Clearance 59 mL/min (70-130); Calcium 9.2 mg/dL (7.8-10.44); Carbon Dioxide 27 mmol/L (23-31); Chloride 100 mmol/L (98-107); Estimated GFR-MDRD 66; Glucose 227 mg/dL (83-110); Potassium 3.6 mmol/L (3.5-5.1); Sodium 136 mmol/L (136-145)
[2018-10-06] MEDS: HumaLOG 300 UNITS/3 ML VIAL SC PRN (12:20)
[2018-10-06 16:24] VITALS: BP 153/76; TEMP 99.2
--- NOTE | 2018-10-07 04:19 | DIS ---
DATE OF ADMISSION: 10/03/2018 DATE OF DISCHARGE: 10/06/2018 DISCHARGE DIAGNOSES: 1. Shortness of breath most likely secondary from diastolic heart failure. 2. Lower extremity edema. 3. Hypertension. HOSPITAL COURSE: The patient is a very pleasant 87-year-old male who initially presented to the hosp ital with generalized lower extremity and upper extremity swelling. The patient at this time did hav e mildly elevated troponins; however, denied any chest pain at this time. [facility] EF of 55%-60% with some diastolic dysfunction and some mild mitral regurgitation an d mild aortic and tricuspid regurgitation. Patient initially was put on IV diuretics. He had a good amount of diuresis. Patient's lower extremity swelling had improved and also his upper extremity sw elling had improved. Patient due to severe debility and generalized weakness was [facility] further evaluation. Patient did not have cellulitis during the hospital stay , it has been noted in my notes, but that was just to carry forward. He did not have cellulitis. He does have some lower extremity erythema, but that is most likely secondary to his lower extremity ed patricia. The patient also had a urine culture did indicate Enterococcus. I did not treat this since pat ient was completely asymptomatic and he does not have a Patel catheter either. The patient will be d ischarged to long-term facility with metformin 1000 mg b.i.d., tamsulosin 0.4 at bedtime, losar mulligan 100 mg daily, carbidopa/levodopa 1 q.i.d., atorvastatin 10 mg at bedtime, aspirin 81 mg daily, me toprolol 50 mg b.i.d. I did put him on insulin 5 units at bedtime, and Lasix 20 mg daily. Patient's hemoglobin A1c was 7.2. PHYSICAL EXAMINATION: VITAL SIGNS: Temperature of 97.6, 71, 18 and 96% on room air, blood pressure 153/76. GENERAL: He is awake, alert, oriented x3, does not appear in distress. CARDIOVASCULAR: S1, S2 present. No murmurs, rubs or gallops. It is regular. No atrial fibrillatio n was noted. He does have Parkinson's. LUNGS: Clear to auscultation. No rhonchi or wheezes noted. ABDOMEN: Soft, nontender. Bowel sounds present x2. EXTREMITIES: He does have edema; however, it is much improved than when he came into the hospital. Again, patient will be discharged to long-term facility. He did tell me that he wanted to be a DNR, which I have documented in the chart. Patient will follow up with his primary care doctor as an outpatient.
== END 2018-10-06 16:16 | DRG 291 ==
LOC: ERS 15:31 → 2NO 17:20
PROVIDERS: ADMIT Internal Medicine; ATTEND Internal Medicine
DX: I11.0 Hypertensive heart disease with heart failure (principal); I50.31 Acute diastolic (congestive) heart failure; E11.9 Type 2 diabetes mellitus without complications; E78.5 Hyperlipidemia, unspecified; G20 Parkinson's disease; I08.3 Combined rheumatic disorders of mitral, aortic and tricuspid valves; Z99.3 Dependence on wheelchair; Z79.84 Long term (current) use of oral hypoglycemic drugs; Z79.82 Long term (current) use of aspirin; Z79.899 Other long term (current) drug therapy
CPT/HCPCS: 36415; 36416; 71045; 80048; 80053; 81001; 82553; 83036; 83880; 84443; 84484; 85025; 87077; 87086; 87186; 93005; 93306; 93798; 94640; 96374; G8981-GP-CK; G8982-GP-CJ; J1644; J1940; J7611; J7620

== ENCOUNTER 2018-11-15 11:39 | Inpatient (IN) | payer MEDICARE, BC ==
[2018-11-15 12:11] LABS: #Eosinphils 0.1 thou/uL (0.0-0.7); #Lymphocytes 0.9 thou/uL (1.20-3.40); #Monocytes 0.3 thou/uL (0.11-0.59); #Neutrophils 4.6 thou/uL (1.40-6.50); %Basophils 0.4 % (0.0-1.0); %Eosinophils 1.7 % (0.0-10.0); %Lymphocytes 15.6 % (21.0-51.0); %Monocytes 4.8 % (0.0-10.0); %Neutrophils 77.5 % (42.0-75.0); Hemoglobin 13.7 g/dL (14.0-18.0); Mean Corpuscular HGB CONC 32.8 g/dL (32.0-36.0); Mean Corpuscular Hemoglobin 29.6 pg (27.0-31.0); Mean Corpuscular Volume 90.3 fL (78.0-98.0); Mean Platelet Volume 7.4 fL (7.4-10.4); Platelet Count 268 thou/uL (130-400); RBC Distribution Width 12.7 % (11.5-14.5); Red Blood Cell (RBC) Count 4.62 mill/uL (4.70-6.10); White Blood Cell (WBC) Count 5.9 thou/uL (4.8-10.8)
[2018-11-15 12:16] LABS: PTT 30.3 SEC (22.9-36.1); Prothrombin Time 13.6 SEC (12.0-14.7)
[2018-11-15 12:44] LABS: ALT (SGPT) 43 U/L (8-55); AST (SGOT) 24 U/L (5-34); Albumin 3.8 g/dL (3.4-4.8); Alkaline Phosphatase 107 U/L (40-150); Anion Gap 14 mmol/L (10-20); BUN (Urea Nitrogen) 22 mg/dL (8.4-25.7); Bilirubin, Total 1.2 mg/dL (0.2-1.2); Calc. Creatinine Clearance 0 mL/min (70-130); Calcium 9.3 mg/dL (7.8-10.44); Carbon Dioxide 30 mmol/L (23-31); Chloride 102 mmol/L (98-107); Estimated GFR-MDRD 83; Globulin 2.9 g/dL (2.4-3.5); Glucose 170 mg/dL (83-110); Potassium 3.9 mmol/L (3.5-5.1); Protein, Total 6.7 g/dL (5.8-8.1); Sodium 142 mmol/L (136-145)
[2018-11-15 13:05] LABS: CKMB 6.3 ng/mL (0-6.6)
[2018-11-15] MEDS ORDERED: Nitroglycerin 2% Ointment 1 INCH/1 GM Packet ONE (13:46)
[2018-11-15] MEDS ORDERED: Furosemide 40 MG/4 ML VIAL ONE (13:46)
[2018-11-15] MEDS ORDERED: hydrALAZINE 20 MG/ML VIAL ONE (15:17)
--- NOTE | 2018-11-15 15:25 | RAD ---
CHEST 1 VIEW: HISTORY: Dyspnea. COMPARISON: 10/03/2018. FINDINGS: Cardiac silhouette is magnified and partially obscured by increasing infiltrate at the left base. Pu lmonary vasculature is slightly engorged with less prominent right basilar infiltrate. The patient i s rotated leftward. Calcification within the aorta. No evidence of pneumothorax. IMPRESSION: 1. Mild pulmonary vascular congestion. 2. More prominent left basilar infiltrate. Clinical correlation regarding other signs and symptoms of left basilar pneumonitis superimposed upon congestive heart failure is required. POS: RANJIT
[2018-11-15 15:55] LABS: CKMB 5.6 ng/mL (0-6.6)
[2018-11-15] MEDS ORDERED: Ondansetron ODT 4 MG TAB SL PRN (16:02)
[2018-11-15] MEDS ORDERED: Ondansetron PF 4 MG/2 ML Vial IVP PRN (16:02)
[2018-11-15] MEDS ORDERED: hydrALAZINE 20 MG/ML VIAL SLOW IVP PRN (17:40)
[2018-11-15] MEDS ORDERED: Labetalol HCl 100 MG/20 ML VIAL SLOW IVP PRN (17:41)
[2018-11-15] MEDS ORDERED: HumaLOG 300 UNITS/3 ML VIAL SC PRN (18:34)
[2018-11-15] MEDS ORDERED: Dextrose 50% Abboject 50 ML SYRINGE SLOW IVP PRN (18:34)
[2018-11-15] MEDS ORDERED: Dextrose 5% in Water 1,000 ML IV PRN (18:34)
[2018-11-15 19:08] LABS: Troponin I 0.225 ng/mL (< 0.028)
[2018-11-15] MEDS: hydrALAZINE 25 MG TAB PO SCH (20:46)
[2018-11-15] MEDS: Atorvastatin Calcium 10 MG TAB PO SCH (20:46)
[2018-11-15] MEDS: Tamsulosin HCl 0.4 MG CAP PO SCH (20:46)
[2018-11-15] MEDS: Metoprolol Tartrate 50 MG TAB PO SCH (20:47)
[2018-11-15] MEDS ORDERED: Insulin Glargine 5 UNITS in Pre-Filled Syringe SC SCH (21:00)
--- NOTE | 2018-11-16 01:43 | HP ---
INTERNAL MEDICINE HISTORY AND PHYSICAL PRIMARY CARE PHYSICIAN: Roland Gutierrez MD CHIEF COMPLAINT/REASON FOR ADMISSION: "I was brought here for swelling." HISTORY OF PRESENT ILLNESS: Mr. Cisneros is an 88-year-old gentleman, familiar to the hospitalist service from an admission in September 2018, at which time, he was admitted with dyspnea secondary to diastolic heart failure, lower extremity edema, and poorly-controlled hypertension. Mr. Cisneros presents on this occasion in transition from his assisted living facility, secondary to worsening swelling in bilateral hands as well as lower extremity edema. Upon EMS transition, they reported being called to the facility earlier today for the same symptoms, at that time, the patient declined transportation. They were subsequently recalled later in the day, the patient agreed for transportation. During our interview, he denies shortness of breath, chest pain, or chest discomfort. He states his "legs have been swelling" but this has not really been bothering him. He has been eating well, no nausea, no vomiting. He has had no fevers or chills. He denies cough or congestion. No recent sick contacts. He states he wanted to return home, but the "hospital won't let me." Medical comorbidities included diagnosis of diastolic congestive heart failure, with echocardiogram recently performed in September 2018 showing a preserved ejection fraction of 55% to 60%. At that time, he also was noted to have mild troponin elevation, similar to this occasion, on which time, he has indeterminate troponins. Additionally, the patient has a history of Parkinson disease, type 2 diabetes, and dyslipidemia. He at baseline uses a wheelchair, requires assistance for transfer from bed to wheelchair. He is not ambulatory. He received IV Lasix in the emergency department and was transitioned to the telemetry floor. Also notable , his EKG shows atrial fibrillation. Prior EKG from hospitalization in September 2018 is similar. Blood pressure elevation noted in the emergency department, requiring IV hydralazine. Readings at that time in the 180 to 200 range systolic. PAST MEDICAL HISTORY: 1. Type 2 diabetes. 2. Parkinson disease. 3. Diastolic congestive heart failure. 4. Dyslipidemia. 5. Essential hypertension. 6. Atrial fibrillation, chronic (present on 2 occasions during in-hospital stay) . 7. Benign prostatic hypertrophy, on Flomax. PAST SURGICAL HISTORY: 1. Tonsillectomy. 2. Excision of cyst on the buttocks. ALLERGIES: NONE. HOME MEDICATIONS: 1. Lantus 5 units subcu at bedtime. 2. Hydralazine 25 mg p.o. b.i.d. 3. Flomax 0.4 mg p.o. at bedtime. 4. Atorvastatin 10 mg p.o. at bedtime. 5. Metoprolol tartrate 50 mg p.o. b.i.d. 6. Metformin 1000 mg p.o. b.i.d. 7. Losartan 100 mg p.o. daily. 8. Furosemide 20 mg p.o. daily. 9. Carbidopa/levodopa 25/250 one tablet p.o. four times daily. 10. Aspirin 81 mg p.o. daily. SOCIAL HISTORY: The patient is retired, he is retired from [employer]. No alcohol use, drug use, or tobacco use. The patient lives in an assisted living facility. He requires assistance for transfer from bed to wheelchair. Code status addressed, he has been DNR in the past, wishes to maintain this and documentation of his code status was noted in the medical record as well. FAMILY HISTORY: The patient denies any family history for heart disease, diabetes. REVIEW OF SYSTEMS: Complete review of systems reviewed, addressed, negative except otherwise as mentioned. PHYSICAL EXAMINATION: VITAL SIGNS: Blood pressure 160/70, temperature 97.9, pulse 78, respiratory rate 16, and satting 96% on room air. GENERAL: He is awake and alert. He is able to tell me his full name, he knows he is in the hospital, and is able to tell me it is October 2018. HEENT: Eyes, no conjunctival injection. No scleral icterus. Oropharynx, mucous membranes are somewhat dry. NECK: Supple, no distinct jugular venous distention. HEART: Irregular, without distinct murmur. LUNGS: Aeration is fair, decreased breath sounds present at the bases. No significant wheezing or rhonchi. ABDOMEN: Soft, nontender, and nondistended. EXTREMITIES: Edema present, 2+, from the feet through to the thighs. SKIN: Hyperemia present in bilateral lower extremities, appears to be chronic in nature. In referencing past medical records, this has been noted in the past as well. Skin is quite dry. NEUROLOGIC: He is able to move all extremities bilaterally to command. Resting tremor is noted, particularly present in the left upper extremity. LABORATORY/DATA REVIEW: I personally reviewed his EKG. Significant artifact is present, but rhythm underlying does appear to be irregular, compatible with atrial fibrillation, heart rate 68. 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 BNP is 1364, prior BNP not available for review. Hemoglobin A1c in September 2018 was 7.2%. White blood cell count is reviewed and is normal. Chemistry panel reviewed; BUN 22, creatinine 0.87, and glucose 170. Liver function tests reviewed and are unremarkable. Indeterminate troponins noted at 0.213. Chest x-ray personally reviewed; mild pulmonary vascular congestion, more prominent in the left basilar area. IMPRESSION: 1. Decompensated diastolic congestive heart failure, in the context of uncontrolled hypertension. 2. Atrial fibrillation, likely chronic, noted in September 2018 as well as today. 3. Indeterminate troponins, not clinically relevant. 4. Type 2 diabetes. 5. Parkinson disease. 6. Dyslipidemia. PLAN/RECOMMENDATIONS: 1. Cardiology - referenced most recent echocardiogram, no indication for repeating this study at this time. Ejection fraction preserved, 55%. No significant valvular pathology. Gentle IV diuretics. At this time, the patient declines Cardiology consultation. He has previously been noted to have atrial fibrillation during hospital stay. CHADS2 score is noted to be 4, representing an 8.5 risk of thrombotic event per year of anticoagulation. We will place on anticoagulation at this time, as per orders. Will discuss with family if available. If the patient ultimately wishes a followup with Cardiology, he could consider to do this as an outpatient. We will continue to monitor on telemetry as well. 2. Pulmonary - I reviewed the patient's chest x-ray. Based on his clinical symptoms, lack of fever, and normal white blood cell count, he does not appear to have an infectious process. This does likely represent fluid overload. 3. Fluids, electrolytes, and nutrition - Saline lock IV fluids, repeat electrolytes as needed particularly in the context of diuresis. Schedule oral potassium. 4. DVT prophylaxis - anticoagulation coverage. 5. Given his aging comorbidities, he is at high risk at this time, he will be placed on observation status with further recommendations pending hospital course. Job ID: [id number] [facility]
--- NOTE | 2018-11-16 01:44 | HP ---
I met with the patient's daughter, Destiny Petty, #[phone] to discuss the patient's case. She relayed that the patient's desire is to pursue a conservative course of care. He would in the future like to be treated at his home residence. He is currently on service of home health with the [facility]. I have placed a Case Management consult to see if that home health service can cover palliative services at home. She also mentioned this to the [facility] home health nurse. In addition, we discussed atrial fibrillation, recommendation for anticoagulation. In speaking with her and given the patient's current desire for a more conservative course of care, we will not begin full anticoagulation. She states that her father would like to keep his therapy simple. Questions were answered. I have explained that if the fluid removal went well, the patient could transition back to his home as early as tomorrow. She asked if fdc would be necessary, as he transitioned to fdc in September. He disliked the fdc facility very much. He would like to avoid fdc, go straight to his home. I told her this is reasonable. His physical condition would likely not benefit from additional rehabilitative services. No further questions at the end of our interview. Do not resuscitate order confirmed. Job ID: [id number] [facility]
[2018-11-16 05:45] LABS: #Eosinphils 0.1 thou/uL (0.0-0.7); #Lymphocytes 0.8 thou/uL (1.20-3.40); #Monocytes 0.4 thou/uL (0.11-0.59); #Neutrophils 4.4 thou/uL (1.40-6.50); %Basophils 0.3 % (0.0-1.0); %Eosinophils 2.4 % (0.0-10.0); %Lymphocytes 14.3 % (21.0-51.0); %Monocytes 6.5 % (0.0-10.0); %Neutrophils 76.5 % (42.0-75.0); Hemoglobin 13.1 g/dL (14.0-18.0); Mean Corpuscular HGB CONC 33.6 g/dL (32.0-36.0); Mean Corpuscular Hemoglobin 30.3 pg (27.0-31.0); Mean Corpuscular Volume 90.3 fL (78.0-98.0); Mean Platelet Volume 7.4 fL (7.4-10.4); Platelet Count 241 thou/uL (130-400); RBC Distribution Width 12.6 % (11.5-14.5); Red Blood Cell (RBC) Count 4.31 mill/uL (4.70-6.10); White Blood Cell (WBC) Count 5.8 thou/uL (4.8-10.8)
[2018-11-16] MEDS ORDERED: Furosemide 40 MG/4 ML VIAL SLOW IVP SCH (06:00)
[2018-11-16 06:06] LABS: ALT (SGPT) 36 U/L (8-55); AST (SGOT) 16 U/L (5-34); Albumin 3.1 g/dL (3.4-4.8); Alkaline Phosphatase 90 U/L (40-150); Anion Gap 12 mmol/L (10-20); BUN (Urea Nitrogen) 19 mg/dL (8.4-25.7); Bilirubin, Total 0.9 mg/dL (0.2-1.2); Calc. Creatinine Clearance 65 mL/min (70-130); Calcium 8.7 mg/dL (7.8-10.44); Carbon Dioxide 26 mmol/L (23-31); Chloride 105 mmol/L (98-107); Estimated GFR-MDRD 90; Globulin 2.6 g/dL (2.4-3.5); Glucose 146 mg/dL (83-110); Magnesium 1.7 mg/dL (1.6-2.6); Potassium 3.2 mmol/L (3.5-5.1); Protein, Total 5.7 g/dL (5.8-8.1); Sodium 140 mmol/L (136-145)
[2018-11-16] MEDS: metFORMIN 500 MG TAB PO SCH ×2 (08:38→16:24)
[2018-11-16] MEDS: Potassium Chloride 10 MEQ TAB PO SCH ×2 (08:38→16:23)
[2018-11-16] MEDS: Enoxaparin Sodium 30 MG/0.3 ML SYRINGE SC SCH (08:38)
[2018-11-16] MEDS: hydrALAZINE 25 MG TAB PO SCH ×2 (08:39→22:04)
[2018-11-16] MEDS: Losartan 25 MG TAB PO SCH (08:39)
[2018-11-16] MEDS: Metoprolol Tartrate 50 MG TAB PO SCH ×2 (08:39→22:05)
[2018-11-16] MEDS ORDERED: Potassium Chloride 20 MEQ TAB PO SCH (08:45)
[2018-11-16] MEDS ORDERED: Prevnar 13-Val Conj/PF 0.5 ML SYRINGE IM ONE (09:00)
[2018-11-16] MEDS ORDERED: Furosemide 20 MG/2 ML VIAL SLOW IVP SCH (09:00)
[2018-11-16] MEDS ORDERED: Furosemide 20 MG TAB PO SCH (09:00)
--- NOTE | 2018-11-16 09:06 | PRG ---
DATE OF SERVICE: 11/16/2018 SUBJECTIVE: The patient is seen and examined at bedside. He has some complaints about his shortness of breath, which is still an issue. OBJECTIVE: VITAL SIGNS: Blood pressure is 191/72, temperature is 97.4, pulse is 60, respiratory rate is 16, O2 saturation is 99% on room air. SKIN: Looks pale. HEENT: Eyes, pupils are responding to light properly. Sclerae are nonicteric. Oral mucosa is moist. NECK: Supple. LUNGS: Breath sounds diminished at both bases with crackles bilaterally. No wheezing. HEART: S1, S2, somewhat irregularly irregular. No S3. No S4. ABDOMEN: Soft, nontender, nondistended. EXTREMITIES: 1 to 2+ peripheral edema similar bilaterally. NEUROLOGICAL: He follows my commands. He moves his all 4 extremities. There is no any motor deficit. LABORATORY DATA: Showed white count of 5.8, hemoglobin 13.1, hematocrit 39.0, platelet count 241,000. Sodium is 140, potassium 3.2, chloride 105, CO2 of 26, BUN 19, creatinine 0.81, glycemia is ranging from 161 to 272. The rest of chemistry within normal limits. BNP is 1377.5, and total serum protein 5.7, and albumin 3.11. Troponins were elevated at 0.213, 0.215, and 0.225. Microbiology, none. IMPRESSION: 1. Congestive heart failure, most likely related to uncontrolled hypertension. His blood pressure is labile. 2. Atrial fibrillation on and off, paroxysmal, currently in sinus rhythm on the monitoring. 3. Indeterminate troponin, most likely some demand ischemia. 4. Type 2 diabetes mellitus. 5. Parkinson disease. 6. Dyslipidemia. PLAN: Is to repeat replace his potassium since his potassium level is down to 3.2 this morning. He will have 10 mEq twice a day, his regular dose ordered by Dr. Uribe yesterday, but I am going to add additional 20 mEq because I feel this is not going to be enough since I decided to give him Lasix 20 mg IV push twice a day. We will continue his diuresis. His BNP is still very significantly elevated. Also, we will continue his aspirin, which will have some antiplatelet effect positive for people with paroxysmal atrial fibrillation. We will make some adjustment on his diabetic regimen since his glycemia is ranging above 200 most of the time. Will continue current regimen and we will see how he looks tomorrow and whether he is able to go back to his assisted-living facility. Job ID: [id number]
[2018-11-16] MEDS: Furosemide 20 MG/2 ML VIAL SLOW IVP SCH (14:21)
[2018-11-16] MEDS: Atorvastatin Calcium 10 MG TAB PO SCH (22:04)
[2018-11-16] MEDS: Insulin Glargine 10 UNITS in Pre-Filled Syringe 1 EACH SC SCH (22:05)
[2018-11-16] MEDS: Tamsulosin HCl 0.4 MG CAP PO SCH (22:05)
[2018-11-17] MEDS: Furosemide 20 MG/2 ML VIAL SLOW IVP SCH ×2 (05:15→14:30)
[2018-11-17] MEDS: Potassium Chloride 10 MEQ TAB PO SCH ×2 (08:48→16:39)
[2018-11-17] MEDS: metFORMIN 500 MG TAB PO SCH ×2 (08:48→16:39)
[2018-11-17] MEDS: hydrALAZINE 25 MG TAB PO SCH ×2 (08:48→21:14)
[2018-11-17] MEDS: Enoxaparin Sodium 30 MG/0.3 ML SYRINGE SC SCH (08:48)
[2018-11-17] MEDS: Metoprolol Tartrate 50 MG TAB PO SCH ×2 (08:49→21:14)
[2018-11-17] MEDS: Losartan 25 MG TAB PO SCH (08:49)
[2018-11-17] MEDS: Amlodipine 5 MG TAB PO SCH (10:31)
[2018-11-17 10:32] LABS: Anion Gap 15 mmol/L (10-20); BUN (Urea Nitrogen) 23 mg/dL (8.4-25.7); Calc. Creatinine Clearance 60 mL/min (70-130); Calcium 9.1 mg/dL (7.8-10.44); Carbon Dioxide 26 mmol/L (23-31); Chloride 102 mmol/L (98-107); Estimated GFR-MDRD 82; Glucose 188 mg/dL (83-110); Sodium 139 mmol/L (136-145)
[2018-11-17] MEDS: Carbidopa/Levodopa 25-250 mg Tablet PO SCH ×4 (10:32→21:14)
--- NOTE | 2018-11-17 11:35 | PRG ---
DATE OF SERVICE: 11/17/2018 SUBJECTIVE: The patient is seen and examined at the bedside. His daughter is in the room during my visit. He seems to be doing better, but we still have a problem with his blood pressure. His appetite is fair. OBJECTIVE: VITAL SIGNS: Blood pressure is 189/81, pulse is 65, temperature is 97.6, respiratory rate is 20, and O2 saturation is 96% on room air. HEENT: His head is atraumatic and normocephalic. Sclerae are nonicteric. Pupils are responding to light properly. Conjunctivae are pinkish. Oral mucosa is moist. NECK: Supple. LUNGS: Breath sounds diminished at both bases with crackles bilaterally at both bases. No wheezing. HEART: S1 and S2, somewhat irregular. No S3. No S4. ABDOMEN: Soft, nontender, and nondistended. EXTREMITIES: 1+ peripheral edema similar bilaterally below the knees. NEUROLOGIC: He follows my commands. He moves his all 4 extremities. There is no any focal deficits. LABORATORY DATA: Labs showed normal electrolytes, BUN of 23, creatinine 0.88, glycemia is ranging from 115 to 200, calcium 9.1, and the rest of chemistry within normal limits. IMPRESSION: 1. Congestive heart failure. 2. Atrial fibrillation, paroxysmal. 3. Uncontrolled hypertension. 4. Indeterminate troponin, most likely secondary to demand ischemia. 5. Type 2 diabetes mellitus. 6. Parkinson disease. 7. Dyslipidemia. PLAN: Plan is to start him on amlodipine 5 mg every morning, the first dose today. Continue his diuresis with Lasix. Restart his carbidopa/levodopa again. The patient is not supposed to be on any anticoagulation that is per him and his daughter's choice. We are not supposed to be too aggressive with him. He will need probably additional day or 2 to control his blood pressure before we can send him back to his primary place, where he came from. We will continue his Lipitor, hydralazine, losartan, metoprolol, and metformin. Job ID: [id number]
[2018-11-17] MEDS: Atorvastatin Calcium 10 MG TAB PO SCH (21:14)
[2018-11-17] MEDS: Insulin Glargine 10 UNITS in Pre-Filled Syringe 1 EACH SC SCH (21:14)
[2018-11-17] MEDS: Tamsulosin HCl 0.4 MG CAP PO SCH (21:14)
[2018-11-18] MEDS: Furosemide 20 MG/2 ML VIAL SLOW IVP SCH ×2 (05:43→13:35)
[2018-11-18 05:58] LABS: Anion Gap 11 mmol/L (10-20); BUN (Urea Nitrogen) 25 mg/dL (8.4-25.7); Calc. Creatinine Clearance 71 mL/min (70-130); Calcium 8.6 mg/dL (7.8-10.44); Carbon Dioxide 28 mmol/L (23-31); Chloride 102 mmol/L (98-107); Estimated GFR-MDRD Greater than 90; Potassium 3.3 mmol/L (3.5-5.1); Sodium 138 mmol/L (136-145)
[2018-11-18 06:04] LABS: Glucose 53 mg/dL (83-110)
[2018-11-18] MEDS: Losartan 25 MG TAB PO SCH (10:46)
[2018-11-18] MEDS: Enoxaparin Sodium 30 MG/0.3 ML SYRINGE SC SCH (10:46)
[2018-11-18] MEDS: Potassium Chloride 10 MEQ TAB PO SCH (10:46)
[2018-11-18] MEDS: metFORMIN 500 MG TAB PO SCH ×2 (10:46→19:48)
[2018-11-18] MEDS: hydrALAZINE 25 MG TAB PO SCH ×2 (10:47→21:01)
[2018-11-18] MEDS: Metoprolol Tartrate 50 MG TAB PO SCH ×2 (10:48→21:00)
[2018-11-18] MEDS: Carbidopa/Levodopa 25-250 mg Tablet PO SCH ×4 (10:49→21:00)
[2018-11-18] MEDS: Amlodipine 5 MG TAB PO SCH (10:49)
[2018-11-18] MEDS ORDERED: Potassium Chloride 20 MEQ TAB PO SCH (16:00)
--- NOTE | 2018-11-18 16:39 | PRG ---
DATE OF SERVICE: 11/18/2018 SUBJECTIVE: The patient is seen and examined at bedside. He is gradually doing better. His appetite is fair. OBJECTIVE: VITAL SIGNS: Blood pressure is 122/85, temperature is 98, pulse 77, respiratory rate is 18, and O2 saturation is 95% on room air. HEENT: His head is atraumatic and normocephalic. Conjunctivae pinkish. Oral mucosa is moist. NECK: Supple. LUNGS: Breath sounds diminished at both bases with few crackles bilaterally at both bases. No wheezing. HEART: S1 and S2 normal. No S3. No S4. ABDOMEN: Soft, nontender, and nondistended. EXTREMITIES: 1+ peripheral edema, similar bilaterally. LABORATORY DATA: Sodium of 138, potassium 3.3, chloride 102, CO2 of 28, BUN 25, creatinine 0.75. Glycemia 53, ranging to 195. Calcium 8.6. IMPRESSION: 1. Congestive heart failure, acute on chronic, improving with diuretics and blood pressure management. 2. Paroxysmal atrial fibrillation, not on anticoagulation per family request. 3. Uncontrolled hypertension, improved. 4. Indeterminate troponin secondary to demand ischemia. 5. Type 2 diabetes mellitus with mild hypoglycemia this morning. 6. Parkinson disease, well controlled. 7. Dyslipidemia. PLAN: Continue working on his blood pressure regimen. Continue Lasix IV. Continue carbidopa levodopa and the rest of the regimen and he should be able to be discharged back to his assisted living place as soon as blood pressure is under good control. Job ID: [id number]
[2018-11-18] MEDS: Potassium Chloride 20 MEQ TAB PO SCH (19:49)
[2018-11-18] MEDS: Tamsulosin HCl 0.4 MG CAP PO SCH (21:00)
[2018-11-18] MEDS: Atorvastatin Calcium 10 MG TAB PO SCH (21:00)
[2018-11-18] MEDS: Insulin Glargine 10 UNITS in Pre-Filled Syringe 1 EACH SC SCH (21:59)
[2018-11-19 05:36] LABS: Anion Gap 16 mmol/L (10-20); BUN (Urea Nitrogen) 26 mg/dL (8.4-25.7); Calc. Creatinine Clearance 63 mL/min (70-130); Calcium 9.2 mg/dL (7.8-10.44); Carbon Dioxide 23 mmol/L (23-31); Chloride 103 mmol/L (98-107); Estimated GFR-MDRD 85; Glucose 95 mg/dL (83-110); Potassium 4.9 mmol/L (3.5-5.1); Sodium 137 mmol/L (136-145)
[2018-11-19] MEDS: Furosemide 20 MG/2 ML VIAL SLOW IVP SCH ×2 (05:59→14:30)
[2018-11-19] MEDS: Enoxaparin Sodium 30 MG/0.3 ML SYRINGE SC SCH (10:00)
[2018-11-19] MEDS: Losartan 25 MG TAB PO SCH (10:01)
[2018-11-19] MEDS: Potassium Chloride 20 MEQ TAB PO SCH ×2 (10:02→18:41)
[2018-11-19] MEDS: Metoprolol Tartrate 50 MG TAB PO SCH ×2 (10:02→20:49)
[2018-11-19] MEDS: Carbidopa/Levodopa 25-250 mg Tablet PO SCH ×4 (10:02→20:49)
[2018-11-19] MEDS: Amlodipine 5 MG TAB PO SCH (10:02)
[2018-11-19] MEDS: metFORMIN 500 MG TAB PO SCH ×2 (10:02→18:40)
[2018-11-19] MEDS: hydrALAZINE 25 MG TAB PO SCH ×2 (10:03→20:49)
--- NOTE | 2018-11-19 13:45 | DIS ---
DATE OF ADMISSION: 11/17/2018 DATE OF DISCHARGE: 11/19/2018 DIAGNOSES AT THE TIME OF DISCHARGE: 1. Acute on chronic congestive heart failure, improved. 2. Paroxysmal atrial fibrillation, not on anticoagulation per family request. 3. Uncontrolled hypertension, improved. 4. Indeterminate troponin secondary to demand ischemia. 5. Type 2 diabetes mellitus. 6. Parkinson's disease, well controlled. 7. Dyslipidemia. HOSPITAL COURSE: The patient is an 88-year-old male, who came to us from assisted living with symptoms of congestive heart failure. He was found to have lower extremity edema. He denied any cough or congestion. He did not have any fever or chills. There was no any contact with sick people. He has a history of diastolic congestive heart failure with LVEF at 55% to 60% according to September 2018 echocardiogram. The patient was evaluated in the emergency room. He was found to have peripheral edema and some congestive heart failure. He was given Lasix. EKG showed atrial fibrillation. He was x-rayed, which showed mild pulmonary vascular congestion with prominence in the left basilar area. The working diagnosis was decompensated diastolic congestive heart failure in the context of uncontrolled hypertension. The patient got admitted to the hospital. The family did not want us to be too aggressive and there was a plan to put him on anticoagulant since he was in atrial fibrillation. His ventricular rate was not high. He was placed on IV Lasix. He was diuresed and gradually his peripheral edema decreased. His chest sounds are better today. He still has some inspiratory crackles at both bases, but that is diminished. His heart monitoring showed that he is in and out of atrial fibrillation with controlled ventricular rate. He was started on amlodipine during this hospitalization 5 mg twice a day for elevated blood pressure. His blood pressure is improved and at this point, he looks good. He is ready to go back to his assisted living place, where he will stay on low-salt diet, diabetic. His condition is fair. He is DNR. ACTIVITIES: As tolerated. MEDICATIONS: At the time of discharge, insulin glargine 5 units at bedtime, hydralazine 25 mg twice a day, Flomax 0.4 mg at bedtime, atorvastatin 10 mg at bedtime, metoprolol tartrate 50 mg twice a day, metformin 1000 mg twice a day, losartan 100 mg daily, furosemide 40 mg every morning, potassium chloride 20 mEq once a day, amlodipine 5 mg, and aspirin 81 mg once a day. FOLLOWUP: He will follow up with his primary care physician in 1 week. The patient was seen and examined before his discharge. TIME SPENT: Discharge time is less than 30 minutes. Job ID: [id number]
[2018-11-19 14:28] VITALS: BMI 25.4
[2018-11-19] MEDS: Tamsulosin HCl 0.4 MG CAP PO SCH (20:49)
[2018-11-19] MEDS: Atorvastatin Calcium 10 MG TAB PO SCH (20:49)
[2018-11-19] MEDS: Insulin Glargine 10 UNITS in Pre-Filled Syringe 1 EACH SC SCH (20:50)
[2018-11-20] MEDS: Furosemide 20 MG/2 ML VIAL SLOW IVP SCH ×2 (06:36→13:11)
[2018-11-20] MEDS: metFORMIN 500 MG TAB PO SCH (09:55)
[2018-11-20] MEDS: Potassium Chloride 20 MEQ TAB PO SCH (09:58)
[2018-11-20] MEDS: Carbidopa/Levodopa 25-250 mg Tablet PO SCH ×2 (09:58→13:06)
[2018-11-20] MEDS: Amlodipine 5 MG TAB PO SCH (09:58)
[2018-11-20] MEDS: Metoprolol Tartrate 50 MG TAB PO SCH (09:58)
[2018-11-20] MEDS: Enoxaparin Sodium 30 MG/0.3 ML SYRINGE SC SCH (09:59)
[2018-11-20] MEDS: hydrALAZINE 25 MG TAB PO SCH (09:59)
[2018-11-20] MEDS: Losartan 25 MG TAB PO SCH (10:06)
--- NOTE | 2018-11-20 15:13 | DIS ---
DATE OF ADMISSION: 11/17/2018 DATE OF DISCHARGE: 11/20/2018 ADDENDUM: For discharge diagnosis and discharge summary, please see discharge summary dictated, 11/19/[address] Davison. DISCHARGE CONDITION: Stable. DISPOSITION: Discharged to [facility] via private pay via personal vehicle on [facility] service. Job ID: [id number]
[2018-11-20 15:41] VITALS: BP 140/90; TEMP 99.9
== END 2018-11-20 17:30 | disposition hospice, home (50) | DRG 292 ==
LOC: ERS 11:39 → 2NO 16:01 → OBSVTOIN 11-17 17:19
PROVIDERS: ADMIT Internal Medicine; ATTEND Internal Medicine
DX: I11.0 Hypertensive heart disease with heart failure (principal); I24.8 Other forms of acute ischemic heart disease; I50.33 Acute on chronic diastolic (congestive) heart failure; Z66 Do not resuscitate; I48.0 Paroxysmal atrial fibrillation; E11.9 Type 2 diabetes mellitus without complications; Z79.4 Long term (current) use of insulin; Z79.84 Long term (current) use of oral hypoglycemic drugs; G20 Parkinson's disease; E78.5 Hyperlipidemia, unspecified; Z79.82 Long term (current) use of aspirin; N40.0 Benign prostatic hyperplasia without lower urinary tract symptoms
CPT/HCPCS: 36415; 36416; 71045; 80048; 80053; 82553; 83735; 83880; 84484; 85025; 85610; 85730; 93005; 94760; 96374; 96375; J0360; J1650; J1940